=== PATIENT | female | born 1965 | race Caucasian/White ===

== ENCOUNTER 2018-10-20 20:39 | Emergency (ER) | payer BC ==
[~2018-10-20] VITALS: Ht 165.1 cm; Wt 91.6 kg
[2018-10-20 20:40] VITALS: BP 202/92
[2018-10-20] MEDS ORDERED: FAMOTIDINE 20 MG TABLET PO ONE (21:00)
[2018-10-20] MEDS ORDERED: DEXAMETHASONE 4 MG/ML, 1ML IVPush ONE (21:00)
[2018-10-20] MEDS ORDERED: FAMOTIDINE 20 MG/2 ML IVPush ONE (21:00)
[2018-10-20] MEDS ORDERED: SODIUM CHLORIDE FLUSH 10ML SYR IVF ONE (21:00)
--- NOTE | 2018-10-20 21:00 | NUR ---
ATE SAUCE AT A [employer] ABOUT 45 MIN AGO THAT CONTAINED PEANUT. HAVING RASH AND ITCHINESS IN THROAT. TOOK 3 25MG BENADRYLS. PT TALKING AND MANAGING SECRETIONS AT THIS TIME. DID NOT TAKE EPI PEN
--- NOTE | 2018-10-20 21:25 | NUR ---
IV ACCESS OBTAINED, PT MEDICATED PER eMAR. NO DISTRESS NOTED, STILL HAS A DRY COUGH, STATED THROAT IS SORE. CALL LIGHT IN REACH
[2018-10-20] MEDS ORDERED: DEXAMETHASONE 4 MG/ML, 5ML ONE (21:32)
[2018-10-20] MEDS ORDERED: FAMOTIDINE 20 MG/2 ML ONE (21:33)
== END 2018-10-20 22:35 | disposition home or self-care (01) ==
LOC: ED 22:05
DX: T78.40XA Allergy, unspecified, initial encounter (principal); J98.01 Acute bronchospasm; Z91.010 Allergy to peanuts; X58.XXXA Exposure to other specified factors, initial encounter
CPT/HCPCS: 93005; 99283